=== PATIENT | female | born 1995 | race Two or more races ===

== ENCOUNTER 2025-10-14 10:23 | Outpatient (CLI) | payer OTHER | END 2025-10-14 10:25 | disposition home or self-care (01) | LOC: PRENATAL 10:23 | PROVIDERS: ATTEND Obstetrics & Gynecology Maternal & Fetal Medicine | DX: O44.02 Complete placenta previa NOS or without hemorrhage, second trimester (principal); O36.1920 Maternal care for other isoimmunization, second trimester, not applicable or unspecified; O34.219 Maternal care for unspecified type scar from previous cesarean delivery; Z3A.22 22 weeks gestation of pregnancy ==